=== PATIENT | male | born 1945 | race Caucasian/White ===

== ENCOUNTER 2024-01-09 19:43 | Inpatient (IN) | payer MEDICARE, OTHER ==
[~2024-01-09] VITALS: Ht 177.8 cm; Wt 79.4 kg
[~2024-01-09 19:43] MED LIST: ALLOPURINOL300 MG PO; ASPIR 8181 MG PO; ASPIRIN PO; BENICAR PO; LISINOPRIL PO; NAPROXEN PO
[2024-01-09] MEDS: ONDANSETRON HCL INJ 2MG/ML 2ML 2 MG/ML VIAL IV STA (20:31)
[2024-01-09] MEDS: Morphine 4mg INJECTION 4 MG/ML INJ IV ONE (20:32)
[2024-01-09 20:33] VITALS: TEMP 97.8
[2024-01-09 20:47] LABS: BASOPHILS % 0.3 % (0.0-1.0); EOSINOPHILS % 0.1 % (0.0-6.0); HEMATOCRIT 37.4 % (38.2-49.6); HEMOGLOBIN 13.2 g/dL (14.0-18.0); LYMPHOCYTES # (AUTO) 1.3 (1.0-3.2); LYMPHOCYTES % 8.8 % (18.0-39.1); MEAN CORPUSCULAR HEMOGLOBIN 46.3 pg (28-32); MEAN CORPUSCULAR HGB CONC 35.3 g/dL (31-35); MEAN CORPUSCULAR VOLUME 131.2 fL (81-99); MONOCYTES # (AUTO) 0.7 (0.2-0.8); MONOCYTES % 4.5 % (4.4-11.3); NEUTROPHILS # (AUTO) 12.9 (2.1-6.9); NEUTROPHILS % 85.7 % (38.7-80.0); PLATELET COUNT 615 x10e3/uL (140-360); RED BLOOD COUNT 2.85 x10e6/uL (4.3-5.7); RED CELL DISTRIBUTION WIDTH 11.7 % (11.7-14.4); WHITE BLOOD COUNT 15.02 x10e3/uL (4.8-10.8)
[2024-01-09 20:55] LABS: INR 0.94
[2024-01-09 20:56] LABS: PARTIAL THROMBOPLASTIN TIME 34.6 seconds (23.8-35.5)
[2024-01-09 21:05] LABS: ALBUMIN 4.4 g/dL (3.5-5.0); ALBUMIN/GLOBULIN RATIO 1.2 (0.8-2.0); ANION GAP 22.8 mmol/L (8-16); BILIRUBIN,TOTAL 1.2 mg/dL (0.2-1.2); CALCIUM 10.1 mg/dL (8.4-10.2); CREATININE, SERUM 1.27 mg/dL (0.72-1.25); POTASSIUM 3.8 mmol/L (3.5-5.1); TOTAL PROTEIN 8.1 g/dL (6.5-8.1)
[2024-01-09] MEDS ORDERED: HYDROMORPHONE 1MG/1ML INJ ONE (21:06)
[2024-01-09] MEDS: SODIUM CHLORIDE 0.9% 1000ML 1,000 ML IV ONE (21:08)
[2024-01-09] MEDS: HYDROMORPHONE 1MG/1ML INJ IV STA (21:08)
[2024-01-09 21:15] VITALS: PULSE 100; RESP 16
[2024-01-09] MEDS ORDERED: IOPAMIDOL 370 MG/ML 100 ML INFUS..BTL INJ ONE (21:22)
[2024-01-09] MEDS ORDERED: HYDREA500 MG PO (23:55)
[2024-01-09] MEDS ORDERED: LISINOPRIL10 MG PO (23:57)
[2024-01-10] VITALS (11 sets, daily range): BP systolic 120–154; BP diastolic 71–88; PULSE 75–87; RESP 18–20; TEMP 97.5–98.6; O2SAT 95–100
[2024-01-10] MEDS: SODIUM CHLORIDE 0.9% 1000ML 1,000 ML IV SCH (00:16)
[2024-01-10] MEDS: ONDANSETRON HCL INJ 2MG/ML 2ML 2 MG/ML VIAL IV PRN (00:16)
[2024-01-10 06:22] LABS: BASOPHILS % 0.1 % (0.0-1.0); HEMATOCRIT 29.9 % (38.2-49.6); HEMOGLOBIN 10.7 g/dL (14.0-18.0); LYMPHOCYTES # (AUTO) 0.7 (1.0-3.2); LYMPHOCYTES % 8.4 % (18.0-39.1); MEAN CORPUSCULAR HEMOGLOBIN 46.3 pg (28-32); MEAN CORPUSCULAR HGB CONC 35.8 g/dL (31-35); MEAN CORPUSCULAR VOLUME 129.4 fL (81-99); MONOCYTES # (AUTO) 0.4 (0.2-0.8); MONOCYTES % 4.7 % (4.4-11.3); NEUTROPHILS # (AUTO) 7.5 (2.1-6.9); NEUTROPHILS % 86.2 % (38.7-80.0); PLATELET COUNT 561 x10e3/uL (140-360); RED BLOOD COUNT 2.31 x10e6/uL (4.3-5.7); RED CELL DISTRIBUTION WIDTH 11.6 % (11.7-14.4); WHITE BLOOD COUNT 8.72 x10e3/uL (4.8-10.8)
[2024-01-10 06:48] LABS: ALBUMIN 3.3 g/dL (3.5-5.0); ALBUMIN/GLOBULIN RATIO 1.1 (0.8-2.0); ANION GAP 13.4 mmol/L (8-16); BILIRUBIN,TOTAL 1.2 mg/dL (0.2-1.2); CALCIUM 8.7 mg/dL (8.4-10.2); CREATININE, SERUM 1.14 mg/dL (0.72-1.25); POTASSIUM 4.4 mmol/L (3.5-5.1); TOTAL PROTEIN 6.3 g/dL (6.5-8.1)
[2024-01-10] MEDS: LISINOPRIL 20 MG TAB PO SCH (09:00)
[2024-01-10] MEDS: HYDROXYUREA 500 MG CAPSULE PO SCH (09:00)
[2024-01-10] MEDS: ALLOPURINOL 300 MG TAB PO SCH (09:00)
[2024-01-10 10:58] LABS: LYMPHOCYTES % (MANUAL) 2 % (19-48); MONOCYTES % (MANUAL) 3 % (3.4-9.0); NEUTROPHILS % (MANUAL) 95 % (40-74); PLATELET ESTIMATE SLIGHTLY INCREASED
[2024-01-10 10:59] LABS: PLATELET MORPHOLOGY COMMENT NORMAL; RBC MORPHOLOGY COMMENT NORMAL
[2024-01-10] MEDS: HYDROMORPHONE 1MG/1ML INJ IV PRN (17:51)
[2024-01-11] VITALS (10 sets, daily range): BP systolic 130–154; BP diastolic 70–80; PULSE 65–100; RESP 17–18; TEMP 97.4–98.2; O2SAT 95–100
[2024-01-11] MEDS ORDERED: LIDOCAINE 1% W/EPINEPHRINE 20 ML VIAL ONE (07:31)
[2024-01-11] MEDS ORDERED: BUPIVACAINE HCL 0.5% INJ 30 ML VIAL INJ ONE (07:31)
[2024-01-11] MEDS ORDERED: SUGAMMADEX SODIUM 200 MG/2 ML VIAL IV ONE (08:25)
[2024-01-11] MEDS ORDERED: ONDANSETRON HCL INJ 2MG/ML 2ML 2 MG/ML VIAL IV PRN (08:30)
[2024-01-11] MEDS ORDERED: ALBUTEROL/IPRATROPIUM 3 ML NEB ONE (08:31)
[2024-01-11] MEDS ORDERED: Morphine 10mg syringe 10 MG/ML INJ ONE (19:46)
[2024-01-11] MEDS ORDERED: FENTANYL CITRATE/PF 100MCG/2 ML INJ ONE (19:46)
[2024-01-12] VITALS (10 sets, daily range): BP systolic 141–165; BP diastolic 78–85; PULSE 74–97; RESP 18–20; TEMP 97.8–98.6; O2SAT 95–100
[2024-01-12 01:23] LABS: CLARITY,URINE CLEAR (CLEAR); COLOR,URINE YELLOW (YELLOW); LEUKOCYTE ESTERASE ,URINE NEGATIVE (NEGATIVE); PH,URINE 5.5 (5 - 7)
[2024-01-12 01:24] LABS: BILIRUBIN,URINE NEGATIVE (NEGATIVE); GLUCOSE, URINE NEGATIVE (NEGATIVE); KETONES,URINE NEGATIVE (NEGATIVE); NITRITE,URINE NEGATIVE (NEGATIVE); PROTEIN,URINE DIPSTICK NEGATIVE (NEGATIVE); URINE UROBILINOGEN 0.2 mg/dL (0.2 - 1)
[2024-01-12 01:28] LABS: BACTERIA,URINE MODERATE /HPF; EPITHELIAL CELLS,URINE FEW /LPF; RBC,URINE 0-5 /HPF (0-5); TRANSITIONAL EPI CELLS,URINE FEW; WBC,URINE (MAN) 0-5 /HPF (0-5)
[2024-01-12 06:44] LABS: BASOPHILS % 0.1 % (0.0-1.0); EOSINOPHILS % 0.1 % (0.0-6.0); HEMOGLOBIN 9.7 g/dL (14.0-18.0); LYMPHOCYTES % 12.5 % (18.0-39.1); MEAN CORPUSCULAR HEMOGLOBIN 46.4 pg (28-32); MEAN CORPUSCULAR HGB CONC 34.6 g/dL (31-35); MONOCYTES # (AUTO) 0.7 (0.2-0.8); MONOCYTES % 8.8 % (4.4-11.3); NEUTROPHILS # (AUTO) 6.3 (2.1-6.9); NEUTROPHILS % 78.1 % (38.7-80.0); PLATELET COUNT 547 x10e3/uL (140-360); RED BLOOD COUNT 2.09 x10e6/uL (4.3-5.7); WHITE BLOOD COUNT 8.06 x10e3/uL (4.8-10.8)
[2024-01-12 07:02] LABS: ALBUMIN 2.9 g/dL (3.5-5.0); ALBUMIN/GLOBULIN RATIO 0.9 (0.8-2.0); ANION GAP 12.7 mmol/L (8-16); BILIRUBIN,TOTAL 1.4 mg/dL (0.2-1.2); CREATININE, SERUM 1.22 mg/dL (0.72-1.25); POTASSIUM 3.7 mmol/L (3.5-5.1); TOTAL PROTEIN 6.1 g/dL (6.5-8.1)
[2024-01-12] MEDS: HYDROCODONE/APAP 5MG-325MG TAB PO PRN (09:07)
[2024-01-12 09:21] LABS: PLATELET ESTIMATE ADEQUATE; PLATELET MORPHOLOGY COMMENT NORMAL; POLYCHROMASIA FEW
[2024-01-13 01:17] VITALS: BP 160/83; PULSE 85; RESP 18; TEMP 98.4; O2SAT 96
[2024-01-13 05:32] VITALS: BP 170/91; PULSE 96; RESP 18; TEMP 98; O2SAT 98
[2024-01-13] MEDS ORDERED: HYDROCODON-ACE1 EA11 PO (07:15)
== END 2024-01-13 09:10 | disposition home or self-care (01) | DRG 351 ==
LOC: ER 19:50 → ERHOLD 23:04 → MED/SURG3 23:38
PROVIDERS: ADMIT Internal Medicine; ATTEND Internal Medicine
PROC: 0YU50JZ Supplement Right Inguinal Region with Synthetic Substitute, Open Approach (ICD-10-PCS; principal; 2024-01-11 07:32)
DX: K40.31 Unilateral inguinal hernia, with obstruction, without gangrene, recurrent (principal); N17.9 Acute kidney failure, unspecified; D75.839 Thrombocytosis, unspecified; M10.9 Gout, unspecified; D75.1 Secondary polycythemia; Z79.82 Long term (current) use of aspirin; Z90.5 Acquired absence of kidney; Z85.528 Personal history of other malignant neoplasm of kidney; Z90.49 Acquired absence of other specified parts of digestive tract; Z87.891 Personal history of nicotine dependence
CPT/HCPCS: 36415; 71045; 74177; 80053; 81001; 85025; 85610; 85730; 93005; 94799; 99284; C1781; J1171; J2270; J2405; J2543; J7030; Q9967